=== PATIENT | male | born 1975 | race Caucasian/White ===

== ENCOUNTER 2022-04-05 19:18 | Inpatient (IN) | payer OTHER ==
[~2022-04-05] VITALS: Ht 175.3 cm; Wt 71.0 kg
[2022-04-05 19:57] LABS: BASOPHILS % (AUTO) 0.8 % (0.0-2.0); HEMATOCRIT 34.3 % (41-53); HEMOGLOBIN 12.1 g/dL (13.5-17.5); LYMPHOCYTES # (AUTO) 0.7 K/uL (1.0-4.8); LYMPHOCYTES % (AUTO) 9.3 % (22.0-44.0); MEAN CORPUSCULAR HEMOGLOBIN 31.1 pg (26.0-34.0); MEAN CORPUSCULAR HGB CONC 35.3 G/dL (31.0-37.0); MEAN CORPUSCULAR VOLUME 88 fL (80-100); MONOCYTES # (AUTO) 0.6 K/uL (0.1-1.0); NEUTROPHILS # (AUTO) 6.2 K/uL (1.8-7.7); NEUTROPHILS % (AUTO) 79.9 % (40.0-70.0); PLATELET COUNT (AUTO) 206 K/uL (150-450)
[2022-04-05 19:59] LABS: COVID AG,FIA SOURCE NASOPHARYNGEAL
[2022-04-05 20:10] LABS: ANION GAP 9 mmol/L (8-16); CALCIUM, TOTAL 7.7 mg/dL (8.8-10.5); CARBON DIOXIDE 25 mmol/L (22-29); CHLORIDE 101 mmol/L (98-107); CREATININE 0.83 mg/dL (0.60-1.30); GLOMERULAR FILTR. RATE CALC > 60 mL/min (>60); GLUCOSE,RANDOM 89 mg/dL (70-110); POTASSIUM 3.5 mmol/L (3.5-5.1); SODIUM SERUM 135 mmol/L (136-145); UREA NITROGEN, BLOOD 17 mg/dL (7-18)
[2022-04-05 20:12] LABS: B-TYPE NATRIURETIC PEPTIDE 23 pg/mL (0-100)
[2022-04-05 20:25] LABS: SALICYLATE 0.8 mg/dL (2.8-20.0)
[2022-04-05 20:34] LABS: ALANINE AMINOTRANSFERASE 58 U/L (12-78); ALBUMIN 3.7 g/dL (3.4-5.0); ALKALINE PHOSPHATASE 62 U/L (46-116); ASPARTATE AMINOTRANSFERASE 82 U/L (15-37); BILIRUBIN,TOTAL 0.4 mg/dL (0.1-1.0); TOTAL PROTEIN, SERUM 6.8 g/dL (6.4-8.2)
[2022-04-05 20:35] LABS: ACETAMINOPHEN < 2 mcg/mL (10-30); CREATINE KINASE, TOTAL ONLY 2117 U/L (39-308)
[2022-04-05] MEDS ORDERED: SODIUM CHLORIDE 0.9% 1,000 ML IV ONE ×2 (20:45→21:30)
[2022-04-05] MEDS ORDERED: CefTRIAXone 1 GM/DEXTROSE 50 ML IV ONE (21:00)
[2022-04-05] MEDS ORDERED: AZITHROMYCIN 500 MG/NS 250 ML IV ONE (21:00)
[2022-04-05] MEDS ORDERED: MAGNESIUM HYDROXIDE SUSPENSION 30 ML UDCUP PO PRN (21:30)
[2022-04-05] MEDS ORDERED: ONDANSETRON HCL 4 MG/2 ML VIAL IVP PRN (21:30)
[2022-04-05] MEDS ORDERED: LORazepam 2 MG/ML VIAL IVP PRN (21:30)
[2022-04-05 21:39] LABS: AMPHET/METH SCREEN,URINE NEGATIVE (NEGATIVE); BARBITURATE SCREEN, URINE NEGATIVE (NEGATIVE); BENZODIAZEPINES SCREEN,URINE NEGATIVE (NEGATIVE); CANNABINOID SCREEN,URINE NEGATIVE (NEGATIVE); COCAINE SCREEN,URINE NEGATIVE (NEGATIVE); METHADONE SCREEN, URINE NEGATIVE (NEGATIVE); OPIATE SCREEN,URINE NEGATIVE (NEGATIVE); PHENCYCLIDINE SCREEN,URINE NEGATIVE (NEGATIVE)
[2022-04-05] MEDS ORDERED: PERMETHRIN 5% 60 GM CREAM TP ONE (21:45)
[2022-04-05] MEDS: ACETAMINOPHEN 325 MG TABLET PO PRN (23:49)
[2022-04-06] VITALS (7 sets, daily range): BP systolic 106–149; BP diastolic 60–92
[2022-04-06] MEDS: FAMOTIDINE 20 MG TABLET PO SCH ×2 (09:00→22:49)
[2022-04-06] MEDS: SODIUM CHLORIDE 0.9% 1,000 ML IV SCH ×2 (12:32→22:49)
[2022-04-06] MEDS: ACETAMINOPHEN 325 MG TABLET PO PRN (12:39)
[2022-04-07 05:22] VITALS: BP 134/80
[2022-04-07 07:43] VITALS: BP 133/86
[2022-04-07 07:58] LABS: ANION GAP 3 mmol/L (8-16); CALCIUM, TOTAL 7.8 mg/dL (8.8-10.5); CARBON DIOXIDE 29 mmol/L (22-29); CHLORIDE 107 mmol/L (98-107); CREATINE KINASE, TOTAL ONLY 678 U/L (39-308); CREATININE 0.71 mg/dL (0.60-1.30); GLOMERULAR FILTR. RATE CALC > 60 mL/min (>60); GLUCOSE,RANDOM 103 mg/dL (70-110); SODIUM SERUM 139 mmol/L (136-145); UREA NITROGEN, BLOOD 9 mg/dL (7-18)
[2022-04-07] MEDS: ACETAMINOPHEN 325 MG TABLET PO PRN (08:44)
[2022-04-07] MEDS: FAMOTIDINE 20 MG TABLET PO SCH ×2 (08:44→08:52)
[2022-04-07] MEDS: SODIUM CHLORIDE 0.9% 1,000 ML IV SCH (08:52)
[2022-04-07 11:48] VITALS: BP 136/62
[2022-04-07 16:12] VITALS: BP 131/65
[2022-04-07 20:36] VITALS: BP 129/77
== END 2022-04-07 20:50 | DRG 917 ==
LOC: EMS 19:18 → 5S 21:28
PROVIDERS: ADMIT Internal Medicine; ATTEND Internal Medicine
DX: T40.1X1A Poisoning by heroin, accidental (unintentional), initial encounter (principal); G92.9 Unspecified toxic encephalopathy; M62.82 Rhabdomyolysis; Z20.822 Contact with and (suspected) exposure to COVID-19; F41.9 Anxiety disorder, unspecified; K75.9 Inflammatory liver disease, unspecified; F15.10 Other stimulant abuse, uncomplicated; Z87.891 Personal history of nicotine dependence
CPT/HCPCS: 71045; 80048; 80053; 82550; 83880; 84484; 85025; 93005; 99285; G0480; G0481; J0456; J0696; J2060; J7030; 36415-L1; 36415-TC